=== PATIENT | female | born 1970 | race Caucasian/White ===

== ENCOUNTER 2017-04-02 14:39 | Emergency (ER) | payer SELFPAY ==
[~2017-04-02] VITALS: Ht 167.6 cm; Wt 98.4 kg
[~2017-04-02 14:39] MED LIST: AMOXICILLIN500 MG OR; ANUSOL-HC25 MG RE; BACTRIM DS1 TAB OR; BUSPAR10 M1 PO; CIPRO500 MG OR; DARVOCET N-100100 - OR; DOXYCYC MONO100 M1 OR; EQ OMEPRAZOLE20 MG PO; FLAGYL500 MG OR; FLEXERIL5 M1 PO; FLUCONAZOLE150 MG PO; KEFLEX500 MG PO; KLONOPIN0.5 MG PO; LORTAB 10 OR; LORTAB 5 OR; LORTAB 5/3255 MG PO; LORTAB 7.5 OR; LORTAB5 OR; MEGACE20 MG OR; METOCLOPRAM10 MG OR; MOTRIN800 MG/TAB PO; NAPROSYN500 MG PO; NO HOME MEDS; PENICILLN VK500 M1 OR; PEXEVA40 MG OR; PREVACID30 M1 PO; PREVACID30 M2 OR; PREVACID30 M3 PO; PRILOSEC OTC20 MG OR; PRILOSEC20 MG OR; PRILOSEC20 MG/CAP PO; PROMETHAZINE25 MG OR; PROTONIX40 MG OR; PROTONIX40 MG PO; SEROQUEL25 MG; SEROQUEL25 MG PO; SOLU-MEDROL125 MG IM; ULTRAM50 M1 PO; ULTRAM50 MG OR; ULTRAM50 MG PO; XANAX0.25 MG PO; ZOFRAN ODT4 MG OR; ZOFRAN ODT4 MG PO; ZOFRAN4 MG/TAB PO; ZOLOFT50 MG OR
--- NOTE | 2017-04-02 14:39 | NUR ---
PT TO ROOM 10 VIA EMS.
[2017-04-02] MEDS ORDERED: SEROQUEL100 MG PO (14:53)
--- NOTE | 2017-04-02 15:00 | NUR ---
PATIENT REPORTS NO CHEST PAIN AFTER NITROSTAT 0.4 MG GIVEN. INFORMED TO CALL FOR ASSISTANCE. CALL [facility] WITHIN REACH. WILL CONTINUE TO MONITOR.
[2017-04-02 15:19] LABS: HEMATOCRIT 41.8 % (37.0-47.0); HEMOGLOBIN 13.8 g/dl (12.0-16.0); IMMATURE GRANULOCYTES 0.3 % (0.0-1.0); MEAN CELL VOLUME 76.8 fL CALC (80.0-100.0); MEAN CORPUSCULAR HGB 25.4 pG CALC (26.0-32.0); NEUT# 8.5 thou/uL (2.00-7.15); RED BLOOD COUNT 5.44 mill/uL (4.20-5.60)
--- NOTE | 2017-04-02 15:35 | NUR ---
STRAIGHT CATH COMPLETED, TOLERATED WELL. URINE SAMPLE COLLECTED.
[2017-04-02 15:51] LABS: ALKALINE PHOSPHATASE 151 u/l (38-126); ANION GAP 17 (6-22 (CALC)); BILIRUBIN, TOTAL 0.4 mg/dL (0.0-1.4); BUN 8 mg/dL (7-17); BUN/CREATININE RATIO 12 (12-20 (CALC)); CARBON DIOXIDE 20 mmol/l (22-30); CHLORIDE 107 mmol/l (95-108); CREATININE 0.7 mg/dL (0.5-1.0); GFR > 60 ML/MIN (>=60 (CALC)); GFR FOR AFR.AMER. > 60 ML/MIN (>=60 (CALC)); LIPASE 379 u/l (23-300); POTASSIUM 4.1 mmol/l (3.5-5.1); SGOT/AST 18 u/l (14-36); SGPT/ALT 26 u/l (9-52); SODIUM 139 mmol/l (137-146); TOTAL PROTEIN 6.9 g/dL (6.3-8.2)
[2017-04-02 15:56] LABS: BARBITURATES NEGATIVE (NEGATIVE); COCAINE NEGATIVE (NEGATIVE); METHADONE NEGATIVE (NEGATIVE); OXCYCODONE NEGATIVE (NEGATIVE); TETRAHYDROCANNABIONOL POSITIVE (NEGATIVE); TRICYLIC ANTIDEPRESSANTS NEGATIVE (NEGATIVE)
--- NOTE | 2017-04-02 16:24 | NUR ---
PATIENT RESTING ON STRETCHER, NO SIGNS OF DISTRESS NOTED, WARM BLANKET PROVIDED PER REQUEST. CALL [facility]IGHT WITHIN [facility], WILL CONTINUE TO MONITOR.
--- NOTE | 2017-04-02 16:48 | NUR ---
ATTEMPT MADE TO CALL REPORT, SPOKE TO SHANIKA. STATES "CAN YOU SENT UP AN SBAR."
--- NOTE | 2017-04-02 16:53 | NUR ---
REPORT GIVEN TO SIMRAN MCKEON
--- NOTE | 2017-04-02 17:00 | NUR ---
PATIENT TRANSPORTED TO [facility] WITH TELE VIA STRETCHER. BEDSIDE REPORT GIVEN TO SIMRAN MCKEON. CARE RELINQUISHED.
--- NOTE | 2017-04-02 17:00 | NUR ---
REPORT RECEIVED FROM JESSICA PT ARRIVED ON UNIT VIA STRETCHER @ 1700, AMBULATED TO BED AND SETTLED IN ROOM, DENIES PAIN/NAUSEA AT THIS TIME. BECAME TEARY EYED DURING ASSESSMENT WHEN SHE REPORTED SHE LOST HER BEST FRIEND A MONTH AGO. ORIENTED TO ROOM AND CALL [facility], WILL CONTINUE TO MONITOR.
[2017-04-02 17:40] VITALS: BP 107/71
--- NOTE | 2017-04-02 19:00 | NUR ---
RECEIVED CHANGE OF SHIFT REPORT FROM SIMRAN MCKEON. PATIENT LYING UN BED AND APPEARS NOT TO BE IN ANY APPARENT ACUTE DISTRESS OR DISCOMFORT. DENIES PAIN AND NAUSEA. WILL CONTINUE TO MONITOR.
[2017-04-02 19:40] VITALS: BP 99/68
--- NOTE | 2017-04-02 23:00 | NUR ---
PATIENT CRYING AND C/O BEING NAUSEATED. MD NOTIFIED OF CHANGE IN PATIENT'S STATUS. ORDERS RECEIVED FOR ZOFRAN AND XANAX.
--- NOTE | 2017-04-02 23:10 | NUR ---
MEDICATED PT WITH ZOFRAN 4MG IVP FOR NAUSEA. WILL CONTINUE TO MONITOR.
[2017-04-02 23:59] VITALS: BP 110/66
--- NOTE | 2017-04-03 | NUR ---
REASSESSED PT AFTER ZOFRAN INTERVENTION. PT STATED "I AM FEEL BETTER"
[2017-04-03 03:46] VITALS: BP 120/59
--- NOTE | 2017-04-03 04:00 | NUR ---
PT RESTING QUIETLY. NO APPARENT ACUTE CHANGES NOTED IN PATIENT'S CONDITION.
--- NOTE | 2017-04-03 07:26 | NUR ---
SHIFT CHANGE REPORT FROM ENDER, PT SLEEPING AT THIS TIME, BREATHING EVEN AND NON-LABORED, NO SIGN DISCOMFORT. NIGHT NURSE REPORTED PT WAS CRYING AT ABOUT 2300 AND C/O NAUSEA, HE ADDRESSED CONCERN AND ALSO GAVE ANTI-ANXIETY MED AND SINCE THEN PT HAS BEEN RESTING/SLEEPING. CALL [facility] IN REACH, WILL CONTINUE TO MONITOR.
--- NOTE | 2017-04-03 07:45 | NUR ---
AWAKE AND ALERT AT 0745, DRY HEAVING AND STATED SHE IS NAUTIOUS, NO VOMIT, GIVEN ANTIEMETIC AND REORTED IMPROVED CONDITION AFTER 30 MINS, TOLERATED MEAL AND RESTING. WILL CONTINUE TO MONITOR.
[2017-04-03 07:53] VITALS: BP 99/71
--- NOTE | 2017-04-03 10:28 | NUR ---
DR DOSHI HERE ROUNDING, WROTE ORDERS.
--- NOTE | 2017-04-03 11:09 | NUR ---
C/O NAUSEA AT THIS TIME AND DRY HEAVING, OFFERED BOB SHANE AND TOLERATED WELL, ON PHONE CRYING AT THIS TIME, ADDRESS ANXIETY WITH ORDERS, WILL CONTINUE TO MONITOR.
--- NOTE | 2017-04-03 11:16 | NUR ---
PATIENT WILL DOES NOT MEET CRITERIA FOR PNEMONIA VACCINE AT THIS TIME
--- NOTE | 2017-04-03 12:59 | NUR ---
Discharge instructions given. Patient verbalizes understanding of same. Discharged in good condition via Wheelchair to Home with family. All belongings sent with pt.
== END 2017-04-03 12:54 | disposition home or self-care (01) | DRG 313 ==
LOC: ED 14:39 → ED-I 16:13 → ED 16:16 → MS2 16:17
PROVIDERS: Family Medicine; ADMIT Internal Medicine; ATTEND Internal Medicine
DX: R07.2 Precordial pain (principal); E78.5 Hyperlipidemia, unspecified; F12.90 Cannabis use, unspecified, uncomplicated; F31.9 Bipolar disorder, unspecified; F41.0 Panic disorder [episodic paroxysmal anxiety]; F17.210 Nicotine dependence, cigarettes, uncomplicated; K21.9 Gastro-esophageal reflux disease without esophagitis; Z85.42 Personal history of malignant neoplasm of other parts of uterus; Z82.3 Family history of stroke
CPT/HCPCS: G0378

== ENCOUNTER 2017-12-09 21:37 | Observation (INO) | payer SELFPAY ==
[~2017-12-09] VITALS: Ht 167.6 cm; Wt 78.0 kg
[~2017-12-09 21:37] MED LIST changes: +SEROQUEL100 MG PO
[2017-12-09 22:18] LABS: HEMATOCRIT 44.8 % (37.0-47.0); HEMOGLOBIN 14.7 g/dl (12.0-16.0); IMMATURE GRANULOCYTES 0.4 % (0.0-5.0); MEAN CELL VOLUME 76.7 fL CALC (80.0-100.0); MEAN CORPUSCULAR HGB 25.2 pG CALC (26.0-32.0); MEAN CORPUSCULAR HGB CONC 32.8 g/L CALC (32.0-36.0); NEUT# 9.11 thou/uL (2.00-7.15); RED BLOOD COUNT 5.84 mill/uL (4.20-5.60)
[2017-12-09 22:32] LABS: ALBUMIN 4.5 g/dL (3.2-5.0); ALKALINE PHOSPHATASE 150 u/l (38-126); ANION GAP 17 (6-22 (CALC)); BILIRUBIN, TOTAL 0.3 mg/dL (0.0-1.4); BUN 11 mg/dL (7-17); BUN/CREATININE RATIO 15 (12-20 (CALC)); CARBON DIOXIDE 22 mmol/l (22-30); CHLORIDE 105 mmol/l (95-108); CREATININE 0.8 mg/dL (0.5-1.0); GFR > 60 ML/MIN (>=60 (CALC)); GFR FOR AFR.AMER. > 60 ML/MIN (>=60 (CALC)); LIPASE 160 u/l (23-300); POTASSIUM 3.6 mmol/l (3.5-5.1); SGOT/AST 15 u/l (14-36); SODIUM 140 mmol/l (137-146); TOTAL PROTEIN 7.7 g/dL (6.3-8.2)
[2017-12-09 22:36] LABS: ACT PARTIAL THROMBO TIME 27.5 SECONDS (20.0-32.5); INTERNATIONAL NORMALIZED RATIO 0.9 RATIO (0.7-1.3); PROTHROMBIN TIME 9.9 SECONDS (9.0-12.5)
[2017-12-09 22:45] LABS: MYOGLOBIN 21 ng/mL (0 - 62)
[2017-12-09 23:35] LABS: URINE BILIRUBIN - DIPSTICK NEGATIVE (NEGATIVE); URINE BLOOD DIPSTICK SMALL (NEGATIVE); URINE COLOR YELLOW; URINE GLUCOSE - DIPSTICK NEGATIVE (NEGATIVE); URINE KETONE NEGATIVE (NEGATIVE); URINE LEUK ESTERASE NEGATIVE (NEGATIVE); URINE NITRITE - DIPSTICK NEGATIVE (Negative); URINE PROTEIN - DIPSTICK NEGATIVE (NEG-TRACE); URINE UROBILINOGEN - DIPSTICK 0.2 E.U./dL (0.2)
[2017-12-09 23:37] LABS: URINE CLARITY TURBID
[2017-12-09 23:58] LABS: URINE BACTERIA FEW hpf; URINE RBC 0-2 RBC/hpf (0-5); URINE WBC 0-2 WBC/hpf (0-5)
[2017-12-09 23:59] LABS: URINE SQUAMOUS EPITHELIAL CELL FEW EPI/hpf (0-FEW)
[2017-12-10 04:08] VITALS: BP 114/53
[2017-12-10 09:23] VITALS: BP 120/62
[2017-12-10 09:54] LABS: MAGNESIUM 2.2 mg/dL (1.6-2.3)
[2017-12-10 11:43] VITALS: BP 124/77
[2017-12-10 15:15] VITALS: BP 116/61
[2017-12-10 19:25] VITALS: BP 102/63
[2017-12-11 00:04] VITALS: BP 106/71
[2017-12-11 04:12] VITALS: BP 103/95
[2017-12-11 05:24] LABS: HEMATOCRIT 42.3 % (37.0-47.0); IMMATURE GRANULOCYTES 0.4 % (0.0-5.0); MEAN CELL VOLUME 76.5 fL CALC (80.0-100.0); MEAN CORPUSCULAR HGB 25.3 pG CALC (26.0-32.0); MEAN CORPUSCULAR HGB CONC 33.1 g/L CALC (32.0-36.0); NEUT# 4.9 thou/uL (2.00-7.15); RED BLOOD COUNT 5.53 mill/uL (4.20-5.60); RED CELL DISTRI WIDTH 16.1 % (11.5-15.5)
[2017-12-11 05:45] LABS: ALBUMIN 3.6 g/dL (3.2-5.0); ALKALINE PHOSPHATASE 126 u/l (38-126); ANION GAP 13 (6-22 (CALC)); BILIRUBIN, TOTAL 0.4 mg/dL (0.0-1.4); BUN 10 mg/dL (7-17); BUN/CREATININE RATIO 16 (12-20 (CALC)); CARBON DIOXIDE 25 mmol/l (22-30); CHLORIDE 106 mmol/l (95-108); CREATININE 0.6 mg/dL (0.5-1.0); GFR > 60 ML/MIN (>=60 (CALC)); GFR FOR AFR.AMER. > 60 ML/MIN (>=60 (CALC)); POTASSIUM 3.6 mmol/l (3.5-5.1); SGOT/AST 16 u/l (14-36); SODIUM 140 mmol/l (137-146); TOTAL PROTEIN 6.5 g/dL (6.3-8.2)
[2017-12-11 08:28] VITALS: BP 114/70
[2017-12-11 11:36] VITALS: BP 105/58
== END 2017-12-11 13:35 | disposition home or self-care (01) | DRG 392 ==
LOC: ED 21:37 → ED-I 23:00 → ED 23:25 → MS2 23:26
PROVIDERS: Emergency Medicine; Nurse Practitioner Family; ADMIT Internal Medicine; ATTEND Internal Medicine
DX: K21.9 Gastro-esophageal reflux disease without esophagitis (principal); R59.0 Localized enlarged lymph nodes; F41.9 Anxiety disorder, unspecified; I10 Essential (primary) hypertension; F25.0 Schizoaffective disorder, bipolar type; F90.9 Attention-deficit hyperactivity disorder, unspecified type; F17.210 Nicotine dependence, cigarettes, uncomplicated; R63.4 Abnormal weight loss; E66.9 Obesity, unspecified; Z85.42 Personal history of malignant neoplasm of other parts of uterus; Z63.8 Other specified problems related to primary support group; Z91.19 Patient's noncompliance with other medical treatment and regimen; N63.0 Unspecified lump in unspecified breast
CPT/HCPCS: G0378; J2060

== ENCOUNTER 2019-02-13 15:54 | Emergency (ER) | payer SELFPAY ==
[~2019-02-13] VITALS: Ht 167.6 cm; Wt 77.2 kg
[2019-02-13 16:18] LABS: HEMATOCRIT 39.4 % (37.0-47.0); HEMOGLOBIN 12.7 g/dl (12.0-16.0); IMMATURE GRANULOCYTES 0.7 % (0.0-5.0); MEAN CELL VOLUME 78.3 fL CALC (80.0-100.0); MEAN CORPUSCULAR HGB 25.2 pG CALC (26.0-32.0); MEAN CORPUSCULAR HGB CONC 32.2 g/L CALC (32.0-36.0); NEUT# 7.79 thou/uL (2.00-7.15); RED BLOOD COUNT 5.03 mill/uL (4.20-5.60); RED CELL DISTRI WIDTH 15.4 % (11.5-15.5)
[2019-02-13 16:38] LABS: ALBUMIN 4.1 g/dL (3.2-5.0); ALKALINE PHOSPHATASE 147 u/l (38-126); ANION GAP 17 (6-22 (CALC)); BILIRUBIN, TOTAL 0.3 mg/dL (0.0-1.4); BUN 19 mg/dL (7-17); BUN/CREATININE RATIO 30 (12-20 (CALC)); CARBON DIOXIDE 24 mmol/l (22-30); CHLORIDE 103 mmol/l (95-108); CREATININE 0.6 mg/dL (0.5-1.0); GFR > 60 ML/MIN (>=60 (CALC)); GFR FOR AFR.AMER. > 60 ML/MIN (>=60 (CALC)); POTASSIUM 4.6 mmol/l (3.5-5.1); SGOT/AST 28 u/l (14-36); SODIUM 139 mmol/l (137-146); TOTAL PROTEIN 7.7 g/dL (6.3-8.2)
[2019-02-13 17:35] LABS: URINE BILIRUBIN - DIPSTICK NEGATIVE (NEGATIVE); URINE BLOOD DIPSTICK SMALL (NEGATIVE); URINE CLARITY CLEAR; URINE COLOR YELLOW; URINE GLUCOSE - DIPSTICK NEGATIVE (NEGATIVE); URINE KETONE NEGATIVE (NEGATIVE); URINE LEUK ESTERASE NEGATIVE (Negative); URINE NITRITE - DIPSTICK NEGATIVE (Negative); URINE PROTEIN - DIPSTICK NEGATIVE (NEG-TRACE); URINE SPECIFIC GRAVITY >=1.030; URINE UROBILINOGEN - DIPSTICK 0.2 E.U./dL (0.2)
[2019-02-13 17:37] LABS: URINE SQUAMOUS EPITHELIAL CELL FEW EPI/hpf (0-FEW); URINE WBC 0-2 WBC/hpf (0-5)
[2019-02-13 17:38] LABS: BARBITURATES NEGATIVE (NEGATIVE); COCAINE NEGATIVE (NEGATIVE); METHADONE NEGATIVE (NEGATIVE); OXCYCODONE NEGATIVE (NEGATIVE); TETRAHYDROCANNABIONOL NEGATIVE (NEGATIVE); TRICYLIC ANTIDEPRESSANTS NEGATIVE (NEGATIVE)
[2019-02-13 18:18] VITALS: BP 129/73
== END 2019-02-13 18:18 | disposition home or self-care (01) | DRG 897 ==
LOC: ED 15:54
DX: F19.10 Other psychoactive substance abuse, uncomplicated (principal); I10 Essential (primary) hypertension; G40.909 Epilepsy, unspecified, not intractable, without status epilepticus; F17.210 Nicotine dependence, cigarettes, uncomplicated

== ENCOUNTER 2020-03-18 19:16 | Emergency (ER) | payer OTHER ==
[~2020-03-18] VITALS: Ht 167.6 cm; Wt 100.0 kg
[~2020-03-18 19:16] MED LIST changes: +KLONOPIN1 MG PO; +LIPITOR20 M1 PO; +SEROQUEL400 MG PO
[2020-03-18 20:31] LABS: HEMATOCRIT 41.6 % (37.0-47.0); HEMOGLOBIN 13.4 g/dl (12.0-16.0); IMMATURE GRANULOCYTES 0.2 % (0.0-5.0); MEAN CELL VOLUME 75.1 fL CALC (80.0-100.0); MEAN CORPUSCULAR HGB 24.2 pG CALC (26.0-32.0); MEAN CORPUSCULAR HGB CONC 32.2 g/dL CAL (32.0-36.0); NEUT# 5.05 thou/uL (2.00-7.15); RED BLOOD COUNT 5.54 mill/uL (4.20-5.60); RED CELL DISTRI WIDTH 15.9 % (11.5-15.5)
[2020-03-18 20:49] LABS: ALBUMIN 4.1 g/dL (3.2-5.0); ALKALINE PHOSPHATASE 167 u/l (38-126); AMYLASE 52 u/l (30-110); ANION GAP 13 (6-22 (CALC)); BILIRUBIN, TOTAL 0.4 mg/dL (0.0-1.4); BUN 12 mg/dL (7-17); BUN/CREATININE RATIO 17 (12-20 (CALC)); CARBON DIOXIDE 21 mmol/l (22-30); CHLORIDE 104 mmol/l (95-108); CREATININE 0.7 mg/dL (0.5-1.0); ETHYL ALCOHOL 0 mg/dl (0-30); GFR > 60 ML/MIN (>=60 (CALC)); GFR FOR AFR.AMER. > 60 ML/MIN (>=60 (CALC)); LIPASE 227 u/l (23-300); POTASSIUM 3.7 mmol/l (3.5-5.1); SGOT/AST 43 u/l (14-36); SODIUM 135 mmol/l (137-146)
[2020-03-18 20:50] LABS: ACT PARTIAL THROMBO TIME 25.1 SECONDS (20.0-32.5); PROTHROMBIN TIME 10.3 SECONDS (9.0-12.5)
[2020-03-18 23:20] LABS: URINE BILIRUBIN - DIPSTICK NEGATIVE (NEGATIVE); URINE BLOOD DIPSTICK SMALL (NEGATIVE); URINE COLOR YELLOW; URINE GLUCOSE - DIPSTICK NEGATIVE (NEGATIVE); URINE KETONE NEGATIVE (NEGATIVE); URINE NITRITE - DIPSTICK NEGATIVE (Negative); URINE PROTEIN - DIPSTICK NEGATIVE (NEG-TRACE); URINE SPECIFIC GRAVITY 1.015; URINE UROBILINOGEN - DIPSTICK 0.2 E.U./dL (0.2)
[2020-03-18 23:26] LABS: URINE BACTERIA FEW hpf; URINE EPITHELIAL CELLS FEW EPI/hpf (0-FEW); URINE LEUK ESTERASE NEGATIVE (NEGATIVE)
[2020-03-18] MEDS ORDERED: CIPROFLOXACN500 MG PO (23:46)
[2020-03-18] MEDS ORDERED: ZOFRAN4 MG/TAB PO (23:46)
[2020-03-18] MEDS ORDERED: ULTRAM50 MG PO (23:46)
[2020-03-18 23:53] VITALS: BP 105/55
== END 2020-03-19 00:01 | disposition home or self-care (01) ==
LOC: ED 19:16
DX: K52.9 Noninfective gastroenteritis and colitis, unspecified (principal); N39.0 Urinary tract infection, site not specified; I10 Essential (primary) hypertension; G40.909 Epilepsy, unspecified, not intractable, without status epilepticus; F41.9 Anxiety disorder, unspecified; F31.9 Bipolar disorder, unspecified; F17.210 Nicotine dependence, cigarettes, uncomplicated; R07.9 Chest pain, unspecified; R07.89 Other chest pain; F41.0 Panic disorder [episodic paroxysmal anxiety]; F17.200 Nicotine dependence, unspecified, uncomplicated
CPT/HCPCS: Q9967

== ENCOUNTER 2020-10-19 14:31 | Emergency (ER) | payer OTHER ==
[~2020-10-19] VITALS: Ht 167.6 cm; Wt 100.0 kg
[~2020-10-19 14:31] MED LIST changes: +CIPROFLOXACN500 MG PO
[2020-10-19 15:21] LABS: HEMATOCRIT 44.7 % (37.0-47.0); HEMOGLOBIN 14.9 g/dl (12.0-16.0); IMMATURE GRANULOCYTES 0.1 % (0.0-5.0); MEAN CORPUSCULAR HGB CONC 33.3 g/dL CAL (32.0-36.0); NEUT# 9.99 thou/uL (2.00-7.15); RED BLOOD COUNT 5.73 mill/uL (4.20-5.60); RED CELL DISTRI WIDTH 14.6 % (11.5-15.5)
[2020-10-19 15:46] LABS: ALBUMIN 4.5 g/dL (3.2-5.0); ALKALINE PHOSPHATASE 147 u/l (38-126); AMYLASE 64 u/l (30-110); ANION GAP 18 (6-22 (CALC)); BUN 15 mg/dL (7-17); BUN/CREATININE RATIO 19 (12-20 (CALC)); CARBON DIOXIDE 20 mmol/l (22-30); CHLORIDE 100 mmol/l (95-108); CREATININE 0.8 mg/dL (0.5-1.0); GFR > 60 ML/MIN (>=60 (CALC)); GFR FOR AFR.AMER. > 60 ML/MIN (>=60 (CALC)); LIPASE 214 u/l (23-300); POTASSIUM 3.1 mmol/l (3.5-5.1); SGOT/AST 40 u/l (14-36); SODIUM 135 mmol/l (137-146); TOTAL PROTEIN 7.9 g/dL (6.3-8.2)
[2020-10-19 15:48] LABS: BILIRUBIN, TOTAL 0.6 mg/dL (0.0-1.4)
[2020-10-19 16:00] VITALS: BP 130/75
[2020-10-20] MEDS ORDERED: SEROQUEL100 MG PO (16:14)
[2020-10-20] MEDS ORDERED: ALPRAZOLAM0.25 MG PO (16:16)
== END 2020-10-19 17:00 | disposition left against medical advice (07) ==
LOC: ED 14:31
PROVIDERS: Emergency Medicine
DX: R55 Syncope and collapse (principal); I10 Essential (primary) hypertension; I25.2 Old myocardial infarction; G40.909 Epilepsy, unspecified, not intractable, without status epilepticus; F31.9 Bipolar disorder, unspecified; F41.9 Anxiety disorder, unspecified; T42.4X6A Underdosing of benzodiazepines, initial encounter; T43.596A Underdosing of other antipsychotics and neuroleptics, initial encounter; Z91.128 Patient's intentional underdosing of medication regimen for other reason; Z85.42 Personal history of malignant neoplasm of other parts of uterus; Z87.891 Personal history of nicotine dependence; Z91.19 Patient's noncompliance with other medical treatment and regimen; Z20.822 Contact with and (suspected) exposure to COVID-19
CPT/HCPCS: J2060

== ENCOUNTER 2020-10-20 10:17 | Observation (INO) | payer OTHER ==
[~2020-10-20] VITALS: Ht 167.6 cm; Wt 87.0 kg
[2020-10-20] VITALS (7 sets, daily range): BP systolic 107–137; BP diastolic 58–73
--- NOTE | 2020-10-20 10:17 | NUR ---
TO ROOM VIA EMS, SEIZURE PRECAUTIONS IN PLACE.
[2020-10-20 11:33] LABS: HEMATOCRIT 45.6 % (37.0-47.0); IMMATURE GRANULOCYTES 0.2 % (0.0-5.0); MEAN CORPUSCULAR HGB CONC 32.9 g/dL CAL (32.0-36.0); NEUT# 8.62 thou/uL (2.00-7.15); RED BLOOD COUNT 5.77 mill/uL (4.20-5.60); RED CELL DISTRI WIDTH 14.7 % (11.5-15.5)
[2020-10-20 12:18] LABS: ALBUMIN 4.4 g/dL (3.2-5.0); ALKALINE PHOSPHATASE 135 u/l (38-126); ANION GAP 17 (6-22 (CALC)); BILIRUBIN, TOTAL 0.6 mg/dL (0.0-1.4); BUN 16 mg/dL (7-17); BUN/CREATININE RATIO 20 (12-20 (CALC)); CARBON DIOXIDE 23 mmol/l (22-30); CHLORIDE 100 mmol/l (95-108); CREATININE 0.8 mg/dL (0.5-1.0); GFR > 60 ML/MIN (>=60 (CALC)); GFR FOR AFR.AMER. > 60 ML/MIN (>=60 (CALC)); LIPASE 138 u/l (23-300); MAGNESIUM 2.1 mg/dL (1.6-2.3); SGOT/AST 46 u/l (14-36); SODIUM 136 mmol/l (137-146); TOTAL PROTEIN 7.5 g/dL (6.3-8.2)
[2020-10-20 15:40] LABS: URINE BLOOD DIPSTICK MODERATE (NEGATIVE); URINE COLOR YELLOW; URINE GLUCOSE - DIPSTICK NEGATIVE (NEGATIVE); URINE KETONE >=80 mg/dL (NEGATIVE); URINE LEUK ESTERASE NEGATIVE (NEGATIVE); URINE PROTEIN - DIPSTICK TRACE mg/dL (NEG-TRACE); URINE SPECIFIC GRAVITY >=1.030; URINE UROBILINOGEN - DIPSTICK 0.2 E.U./dL (0.2)
[2020-10-20 15:44] LABS: URINE BILIRUBIN - DIPSTICK MODERATE (NEGATIVE); URINE NITRITE - DIPSTICK NEGATIVE (Negative)
[2020-10-20 15:48] LABS: URINE SQUAMOUS EPITHELIAL CELL MODERATE EPI/hpf (0-FEW)
--- NOTE | 2020-10-20 15:49 | NUR ---
UNSUCESFULL ATTEMPT TO CALL PT'S [facility] PER PT'S REQUEST
[2020-10-20] MEDS ORDERED: SEROQUEL100 MG PO (16:14)
[2020-10-20] MEDS ORDERED: ALPRAZOLAM0.25 MG PO (16:16)
--- NOTE | 2020-10-20 18:42 | NUR ---
Reassessment of patient completed. No distress noted.
--- NOTE | 2020-10-20 21:29 | NUR ---
RESTING QUIETLY IN BED. NO DISTRESS. AGREES WITH PLAN FOR ADMISSION. PT AWARE THAT SHE WILL BE HOUSED IN [facility]
[2020-10-21 00:23] VITALS: BP 110/61
[2020-10-21 01:23] VITALS: BP 115/72
--- NOTE | 2020-10-21 02:15 | NUR ---
AWAITING SEROQUEL FROM [employer]PER[employer]OR [employer]ATE PASTING
[2020-10-21 02:23] VITALS: BP 123/75
[2020-10-21 03:23] VITALS: BP 115/70
[2020-10-21 04:23] VITALS: BP 132/78
--- NOTE | 2020-10-21 06:00 | NUR ---
PT MONITORED CLOSELY OVERNIGHT. NO SEIZURE ACTIVITY NOTED. FAMILY MEMBER ASKED TO BRING IN CELL PHONE FOR PATIENT PATIENT REQUESTED LAST NIGHT. CELL PHONE NOT BROUGHT IN. PT TEARFULL INTERMITTENTLY. EMOTIONAL SUPPORT PROVIDED. PT RESTED WELL AFTER SEROQUEL.
[2020-10-21 08:13] LABS: HEMOGLOBIN 15.5 g/dl (12.0-16.0); IMMATURE GRANULOCYTES 0.3 % (0.0-5.0); MEAN CELL VOLUME 78.6 fL CALC (80.0-100.0); MEAN CORPUSCULAR HGB 25.9 pG CALC (26.0-32.0); NEUT# 3.39 thou/uL (2.00-7.15); RED BLOOD COUNT 5.98 mill/uL (4.20-5.60); RED CELL DISTRI WIDTH 14.8 % (11.5-15.5)
[2020-10-21 08:47] LABS: ALBUMIN 4.2 g/dL (3.2-5.0); ALKALINE PHOSPHATASE 132 u/l (38-126); ANION GAP 13 (6-22 (CALC)); BILIRUBIN, TOTAL 0.6 mg/dL (0.0-1.4); BUN 13 mg/dL (7-17); BUN/CREATININE RATIO 19 (12-20 (CALC)); C-REACTIVE PROTEIN 1.1 mg/dL (0-0.9); CARBON DIOXIDE 23 mmol/l (22-30); CHLORIDE 103 mmol/l (95-108); CREATININE 0.7 mg/dL (0.5-1.0); GFR > 60 ML/MIN (>=60 (CALC)); GFR FOR AFR.AMER. > 60 ML/MIN (>=60 (CALC)); POTASSIUM 3.7 mmol/l (3.5-5.1); SGOT/AST 43 u/l (14-36); SODIUM 134 mmol/l (137-146); TOTAL PROTEIN 7.1 g/dL (6.3-8.2)
--- NOTE | 2020-10-21 12:00 | NUR ---
PATIENT ALERT, VERBAL, ABLE TO MAKE NEEDS KNOWN. TOLERATES MEDS WELL WHOLE. CONT OF BOWEL AND BLADDER--ABLE TO TRANSFER TO AND FROM [facility] INDEPENDENTLY--GAIT STEADY. NO FURTHER SEIZURE ACTIVITY AT THIS TIME--CONDITION STABLE--MILD TEARFULNESS WHEN SHE TALKS ABOUT HER FAMILY--SPOKE WITH DAUGHTER THIS AM--GAVE UPDATE--PATIEMILIANA TTO DC HOME LATER THIS AFTERNOON--PENDING A REPEAT COVID SWAB AT THIS TIME. DENIES PAIN--WILL CONT TO MONITOR FOR ANY FURTHER CHANGES.
[2020-10-21] MEDS ORDERED: SEROQUEL100 MG PO (12:28)
[2020-10-21] MEDS ORDERED: SEROQUEL400 MG PO (12:28)
[2020-10-21] MEDS ORDERED: ZOFRAN4 MG/TAB PO (12:29)
[2020-10-21] MEDS ORDERED: ALPRAZOLAM0.25 MG PO (12:29)
--- NOTE | 2020-10-21 13:42 | NUR ---
Discharge instructions given. Patient verbalizes understanding of same. Discharged in good condition via Wheelchair to Home with family. All belongings sent with pt. Repeat COVID swab was negative.
[2020-10-21 19:10] VITALS: BP 140/70
== END 2020-10-21 13:42 | disposition home or self-care (01) | DRG 101 ==
LOC: ED 10:17 → ED-I 15:27 → ED 16:07 → ED-I 16:08 → ED 16:58 → ED-I 16:58 → ED 16:59 → ED-I 16:59
PROVIDERS: Emergency Medicine; Nurse Practitioner; ADMIT Hospitalist; ATTEND Hospitalist
DX: G40.909 Epilepsy, unspecified, not intractable, without status epilepticus (principal); R55 Syncope and collapse; R07.89 Other chest pain; E16.2 Hypoglycemia, unspecified; I10 Essential (primary) hypertension; F31.9 Bipolar disorder, unspecified; F41.9 Anxiety disorder, unspecified; T43.596A Underdosing of other antipsychotics and neuroleptics, initial encounter; F17.200 Nicotine dependence, unspecified, uncomplicated; T42.4X6A Underdosing of benzodiazepines, initial encounter; Z91.128 Patient's intentional underdosing of medication regimen for other reason; Z85.42 Personal history of malignant neoplasm of other parts of uterus; Z20.822 Contact with and (suspected) exposure to COVID-19
CPT/HCPCS: J1650; J2060

== ENCOUNTER 2020-12-21 07:03 | Emergency (ER) | payer OTHER ==
[~2020-12-21] VITALS: Ht 167.6 cm; Wt 75.0 kg
[~2020-12-21 07:03] MED LIST changes: +ALPRAZOLAM0.25 MG PO
[2020-12-21 07:38] LABS: HEMATOCRIT 43.1 % (37.0-47.0); HEMOGLOBIN 13.8 g/dl (12.0-16.0); IMMATURE GRANULOCYTES 0.2 % (0.0-5.0); MEAN CELL VOLUME 80.9 fL CALC (80.0-100.0); MEAN CORPUSCULAR HGB 25.9 pG CALC (26.0-32.0); NEUT# 6.4 thou/uL (2.00-7.15); RED BLOOD COUNT 5.33 mill/uL (4.20-5.60); RED CELL DISTRI WIDTH 15.6 % (11.5-15.5)
[2020-12-21 07:51] LABS: ALBUMIN 4.1 g/dL (3.2-5.0); ALKALINE PHOSPHATASE 157 u/l (38-126); ANION GAP 12 (6-22 (CALC)); BILIRUBIN, TOTAL 0.4 mg/dL (0.0-1.4); BUN 17 mg/dL (7-17); BUN/CREATININE RATIO 22 (12-20 (CALC)); CARBON DIOXIDE 24 mmol/l (22-30); CHLORIDE 106 mmol/l (95-108); CREATININE 0.8 mg/dL (0.5-1.0); GFR > 60 ML/MIN (>=60 (CALC)); GFR FOR AFR.AMER. > 60 ML/MIN (>=60 (CALC)); LIPASE 132 u/l (23-300); POTASSIUM 3.9 mmol/l (3.5-5.1); SGOT/AST 20 u/l (14-36); SODIUM 138 mmol/l (137-146); TOTAL PROTEIN 7.8 g/dL (6.3-8.2)
[2020-12-21 08:59] LABS: URINE BILIRUBIN - DIPSTICK NEGATIVE (NEGATIVE); URINE BLOOD DIPSTICK SMALL (NEGATIVE); URINE COLOR YELLOW; URINE GLUCOSE - DIPSTICK NEGATIVE (NEGATIVE); URINE KETONE NEGATIVE (NEGATIVE); URINE LEUK ESTERASE NEGATIVE (NEGATIVE); URINE NITRITE - DIPSTICK NEGATIVE (Negative); URINE PROTEIN - DIPSTICK NEGATIVE (NEG-TRACE); URINE SPECIFIC GRAVITY 1.015; URINE UROBILINOGEN - DIPSTICK 0.2 E.U./dL (0.2)
[2020-12-21 09:20] LABS: URINE RBC 0-2 RBC/hpf (0-5); URINE SQUAMOUS EPITHELIAL CELL RARE EPI/hpf (0-FEW)
[2020-12-21] MEDS ORDERED: ULTRAM50 MG PO (09:31)
[2020-12-21] MEDS ORDERED: FLEXERIL5 M1 PO (09:31)
[2020-12-21 09:38] VITALS: BP 126/70
== END 2020-12-21 09:45 | disposition home or self-care (01) ==
LOC: ED 07:03
DX: M19.012 Primary osteoarthritis, left shoulder (principal); I10 Essential (primary) hypertension; G40.909 Epilepsy, unspecified, not intractable, without status epilepticus; F41.9 Anxiety disorder, unspecified; F31.9 Bipolar disorder, unspecified

== ENCOUNTER 2020-12-26 11:20 | Emergency (ER) | payer OTHER ==
[~2020-12-26] VITALS: Ht 167.6 cm; Wt 90.0 kg
[2020-12-26 11:44] LABS: HEMOGLOBIN 13.3 g/dl (12.0-16.0); IMMATURE GRANULOCYTES 0.1 % (0.0-5.0); MEAN CELL VOLUME 78.9 fL CALC (80.0-100.0); MEAN CORPUSCULAR HGB 26.2 pG CALC (26.0-32.0); MEAN CORPUSCULAR HGB CONC 33.3 g/dL CAL (32.0-36.0); NEUT# 15.06 thou/uL (2.00-7.15); RED BLOOD COUNT 5.07 mill/uL (4.20-5.60); RED CELL DISTRI WIDTH 15.3 % (11.5-15.5)
[2020-12-26 12:03] LABS: ALBUMIN 3.6 g/dL (3.2-5.0); ALKALINE PHOSPHATASE 153 u/l (38-126); ANION GAP 11 (6-22 (CALC)); BILIRUBIN, TOTAL 0.5 mg/dL (0.0-1.4); BUN 14 mg/dL (7-17); BUN/CREATININE RATIO 22 (12-20 (CALC)); CARBON DIOXIDE 23 mmol/l (22-30); CHLORIDE 106 mmol/l (95-108); CREATININE 0.6 mg/dL (0.5-1.0); GFR > 60 ML/MIN (>=60 (CALC)); GFR FOR AFR.AMER. > 60 ML/MIN (>=60 (CALC)); POTASSIUM 3.9 mmol/l (3.5-5.1); SGOT/AST 19 u/l (14-36); SODIUM 136 mmol/l (137-146); TOTAL PROTEIN 6.8 g/dL (6.3-8.2)
[2020-12-26 13:48] LABS: URINE BILIRUBIN - DIPSTICK NEGATIVE (NEGATIVE); URINE BLOOD DIPSTICK SMALL (NEGATIVE); URINE COLOR YELLOW; URINE GLUCOSE - DIPSTICK NEGATIVE (NEGATIVE); URINE KETONE NEGATIVE (NEGATIVE); URINE LEUK ESTERASE NEGATIVE (NEGATIVE); URINE PROTEIN - DIPSTICK NEGATIVE (NEG-TRACE); URINE UROBILINOGEN - DIPSTICK 0.2 E.U./dL (0.2)
[2020-12-26 13:49] LABS: URINE NITRITE - DIPSTICK NEGATIVE (Negative)
[2020-12-26 13:56] LABS: URINE SQUAMOUS EPITHELIAL CELL FEW EPI/hpf (0-FEW)
[2020-12-26] MEDS ORDERED: ZOFRAN4 M1 PO (15:36)
[2020-12-26 16:10] VITALS: BP 110/72
== END 2020-12-26 16:21 | disposition home or self-care (01) ==
LOC: ED 11:20
PROVIDERS: Family Medicine
DX: R10.12 Left upper quadrant pain (principal); I10 Essential (primary) hypertension; E66.9 Obesity, unspecified; G40.909 Epilepsy, unspecified, not intractable, without status epilepticus; E78.5 Hyperlipidemia, unspecified; F41.9 Anxiety disorder, unspecified; F31.9 Bipolar disorder, unspecified; F17.200 Nicotine dependence, unspecified, uncomplicated; Z85.42 Personal history of malignant neoplasm of other parts of uterus
CPT/HCPCS: Q9967